=== PATIENT | female | born 1945 ===

== ENCOUNTER 2016-09-18 08:16 | Emergency (ER) | payer BC, MEDICARE ==
[2016-09-18 08:43] VITALS: BP 131/76
--- NOTE | 2016-09-18 09:17 | UC ---
Respiratory Complaint HPI - HPI Summary HPI Summary: 71 yo female with hx of asthma presents with fever/chills/sore throat and cough x <48 hours For about 2 weeks has had allergy symptoms no n/v/d no CP or SOB - History of Current Complaint Chief Complaint: UCRespiratory Stated Complaint: FLU SYMPTOMS Time Seen by Provider: 09/18/16 09:08 Hx Obtained From: Patient Onset/Duration: Gradual Onset, Lasting Days Timing: Constant Severity Initially: Moderate Severity Currently: Moderate Pain Intensity: 4 Pain Scale Used: 0-10 Numeric Character: Cough: Nonproductive Aggravating Factors: Nothing Alleviating Factors: Nothing Associated Signs And Symptoms: Positive: Fever, Chills, Nasal Congestion - Allergies/Home Medications Allergies/Adverse Reactions: Allergies Allergy/AdvReac Type Severity Reaction Status Date / Time Egg Yolk Allergy Rash And Verified 09/18/16 08:43 Itching Penicillins Allergy Hives Verified 09/18/16 08:43 Sulfa Antibiotics Allergy Hives Verified 09/18/16 08:43 Home Medications: Home Medications Acetaminophen 500 mg PO Q4H PRN 09/18/16 [History Confirmed 09/18/16] Albuterol HFA INHALER* [Ventolin HFA Inhaler*] 2 puff INH Q4H PRN 09/18/16 [ History Confirmed 09/18/16] Allergy Med DAILY 09/18/16 [History] Fluticas/Salmet 115/21 HFA(NF) [Advair HFA 115/21 (NF)] 1 puff INH BID 09/18/16 [History Confirmed 09/18/16] Montelukast Sodium TAB* [Singulair 10 MG TAB*] 10 mg PO DAILY 09/18/16 [History Confirmed 09/18/16] PMH/Surg Hx/FS Hx/Imm Hx Previously Healthy: Yes Respiratory History Of: Reports: Asthma, Bronchitis - Surgical History Surgical History: Yes Surgery Procedure, Year, and Place: hysterectomy - Family History Known Family History: Positive: Hypertension, Respiratory Disease - Social History Alcohol Use: Occasionally Substance Use Type: None Smoking Status (MU): Never Smoked Tobacco Review of Systems Constitutional: Fever, Chills, Fatigue Skin: Negative Eyes: Negative ENT: Sore Throat, Nasal Discharge Respiratory: Cough Cardiovascular: Negative Gastrointestinal: Negative Genitourinary: Negative Motor: Negative Neurovascular: Negative Musculoskeletal: Myalgia Neurological: Negative Psychological: Negative All Other Systems Reviewed And Are Negative: Yes Physical Exam Triage Information Reviewed: Yes Appearance: No Pain Distress, Well-Nourished, Ill-Appearing Vital Signs: Initial Vital Signs Temp 98.7 F 09/18/16 08:35 Pulse 83 09/18/16 08:35 Resp 18 09/18/16 08:35 BP 131/76 09/18/16 08:35 Pulse Ox 98 09/18/16 08:35 Vital Signs Reviewed: Yes Eyes: Positive: Conjunctiva Clear ENT: Positive: Hearing grossly normal, Pharynx normal, Nasal congestion, Nasal drainage, TMs normal, Other: - no sinus tenderness. Negative: Tonsillar swelling, Tonsillar exudate, Trismus, Muffled/hoarse voice Dental: Negative: Abscess @ Neck: Positive: Supple, Nontender, No Lymphadenopathy Respiratory: Positive: Chest non-tender, Lungs clear, Normal breath sounds, No respiratory distress, No accessory muscle use. Negative: Respiratory distress, Decreased breath sounds Cardiovascular: Positive: RRR, No Murmur. Negative: Tachycardia, Bradycardia Musculoskeletal: Positive: Strength Intact, ROM Intact, No Edema Neurological: Positive: Alert, Muscle Tone Normal Psychological Exam: Normal Skin Exam: Normal UC Diagnostic Evaluation - Laboratory O2 Sat by Pulse Oximetry: 98 - normal/not hypoxic Respiratory Course/Dx - Differential Dx/Diagnosis Provider Diagnoses: influenza Discharge - Discharge Plan Condition: Stable Disposition: HOME Prescriptions: Oseltamivir CAP* [Tamiflu CAP*] 75 mg PO BID #10 cap Patient Education Materials: Influenza (ED) Additional Instructions: rest/fluids tylenol TO ER FOR NEW OR WORSENING SYMPTOMS recheck here in 3-4 days if not dramatically improved
== END 2016-09-18 09:36 | disposition home or self-care (01) ==
LOC: UCCORT 08:16
DX: J11.1 Influenza due to unidentified influenza virus with other respiratory manifestations (principal); J45.909 Unspecified asthma, uncomplicated; Z88.0 Allergy status to penicillin; Z88.2 Allergy status to sulfonamides
CPT/HCPCS: 87502; 99202; G0463

== ENCOUNTER 2016-09-21 12:06 | Emergency (ER) | payer MEDICARE, BC ==
[2016-09-21 13:11] VITALS: BP 131/75
--- NOTE | 2016-09-21 14:34 | UC ---
Respiratory Complaint HPI - HPI Summary HPI Summary: 71 yo female seen here 4 days ago Was dx with the flu now with severe sinus pain and pressure as well as ear pressure no f/c marked facial pressure - History of Current Complaint Chief Complaint: UCRespiratory Stated Complaint: SINUS,EAR PAIN-SEEN 4/3 Time Seen by Provider: 09/21/16 14:26 Hx Obtained From: Patient Onset/Duration: Gradual Onset, Lasting Days Timing: Constant Severity Initially: Moderate Severity Currently: Moderate Pain Intensity: 6 Pain Scale Used: 0-10 Numeric Character: Cough: Nonproductive Associated Signs And Symptoms: Positive: Nasal Congestion, Hoarseness, Sinus Discomfort - Allergies/Home Medications Allergies/Adverse Reactions: Allergies Allergy/AdvReac Type Severity Reaction Status Date / Time Egg Yolk Allergy Rash And Verified 09/21/16 12:57 Itching Penicillins Allergy Hives Verified 09/21/16 12:57 Sulfa Antibiotics Allergy Hives Verified 09/21/16 12:57 Home Medications: Home Medications Albuterol 2.5MG/3ML (0.083%)* [Ventolin 2.5 MG/3 ML NEB.LISSETTE*] 2.5 mg INH Q4H PRN 09/21/16 [History Confirmed 09/21/16] Diphenhydramine HCl [Benadryl Allergy 25 MG CAP] 25 mg PO BEDTIME PRN 09/21/16 [ History Confirmed 09/21/16] Ibuprofen [Ibuprofen 200 MG] 200 mg PO Q6H PRN 09/21/16 [History Confirmed 09/21] PMH/Surg Hx/FS Hx/Imm Hx Previously Healthy: Yes Respiratory History Of: Reports: Asthma, Bronchitis - Surgical History Surgical History: Yes Surgery Procedure, Year, and Place: hysterectomy - Family History Known Family History: Positive: Hypertension, Respiratory Disease - Social History Alcohol Use: Occasionally Substance Use Type: None Smoking Status (MU): Never Smoked Tobacco - Immunization History Most Recent Influenza Vaccination: NO Review of Systems Constitutional: Negative Skin: Negative Eyes: Negative ENT: Ear Ache, Nasal Discharge Respiratory: Cough Cardiovascular: Negative Gastrointestinal: Negative Genitourinary: Negative Motor: Negative Neurovascular: Negative Musculoskeletal: Negative Neurological: Negative Psychological: Negative All Other Systems Reviewed And Are Negative: Yes Physical Exam Triage Information Reviewed: Yes Appearance: Well-Appearing, No Pain Distress, Well-Nourished Vital Signs: Initial Vital Signs Temp 99.1 F 04/06/17 13:02 Pulse 85 09/21/16 13:02 Resp 21 09/21/16 13:02 BP 131/75 09/21/16 13:02 Pulse Ox 96 09/21/16 13:02 Eyes: Positive: Conjunctiva Clear ENT: Positive: Hearing grossly normal, Nasal congestion, Nasal drainage, TMs normal, Other: - right>left max sinus tenderness. Negative: Tonsillar exudate, Trismus, Muffled/hoarse voice Dental: Negative: Abscess @ Neck: Positive: Nontender, No Lymphadenopathy Respiratory: Positive: Lungs clear, Normal breath sounds, No respiratory distress, No accessory muscle use Cardiovascular: Positive: RRR, No Murmur Musculoskeletal: Positive: Strength Intact, ROM Intact Neurological: Positive: Alert Psychological Exam: Normal Skin Exam: Normal UC Diagnostic Evaluation - Laboratory O2 Sat by Pulse Oximetry: 96 - normal/not hypoxic Respiratory Course/Dx - Differential Dx/Diagnosis Provider Diagnoses: acute sinusitis Discharge - Discharge Plan Condition: Stable Disposition: HOME Prescriptions: Clindamycin CAP* [Cleocin 150 MG CAP*] 150 mg PO QID #28 cap Patient Education Materials: Sinusitis (ED) Referrals: Non Staff,Doctor [Primary Care Provider] - Additional Instructions: warm facial compresses rest saline nasal spray twice daily recheck for new or worsening symptoms recheck in 5-7 days if not better
== END 2016-09-21 14:44 | disposition home or self-care (01) ==
LOC: UCCORT 12:06
DX: J01.90 Acute sinusitis, unspecified (principal); J45.909 Unspecified asthma, uncomplicated; Z88.0 Allergy status to penicillin; Z88.2 Allergy status to sulfonamides
CPT/HCPCS: 99212; G0463